=== PATIENT | female | born 1945 | race Caucasian/White ===

== ENCOUNTER → 2023-11-13 06:28 | Outpatient (REF) | payer MEDICARE, OTHER, SELFPAY ==
[2023-11-13 09:32] LABS: % Basophils 1.1 % (0-2); % Eosinophils 3.1 % (0-6); % Immature Granulocytes 0.4 % (0-0.5); % Lymphocytes 35.9 % (20.5-51.1); % Monocytes 7.9 % (1.7-9.3); % Neutrophils 51.6 % (42.2-75.2); Absolute Basophils 0.1 10^3/uL (0-0.2); Absolute Eosinophils 0.2 10^3/uL (0-0.7); Absolute Lymphocytes 1.9 10^3/uL (1.2-3.4); Absolute Monocytes 0.4 10^3/uL (0.1-0.6); Absolute Neutrophils 2.8 10^3/uL (1.4-6.5); Hematocrit 39.5 % (37.0-47.0); Hemoglobin 13.2 g/dL (12.0-16.0); Mean Corp Hgb Conc. 33.4 g/dL (33.0-37.0); Mean Corpuscular Volume 92.7 fL (81.0-99.0); Mean Platelet Volume 8.9 fL (7.4-10.4); Nucleated Red Blood Cells % 0 %; Platelet Count 253 10^3/uL (130-400); Red Blood Cell Count 4.26 10^6/uL (4.20-5.40); Red Cell Dist. Width 13.9 % (11.5-14.5); White Blood Cell Count 5.4 10^3/uL (4.8-10.8)
[2023-11-13 09:34] LABS: Urine Albumin Negative (Neg - Trace); Urine Bilirubin Negative (Negative); Urine Character Clear (Clear); Urine Color Yellow; Urine Glucose Negative (Negative); Urine Ketone Negative (Negative); Urine Leukocyte Negative (Negative); Urine Nitrite Negative (Negative); Urine Occult Blood Negative (Negative); Urine Urobilinogen Negative (Neg - 1+)
[2023-11-13 10:01] LABS: ALT (SGPT) 15 U/L (0-35); AST (SGOT) 25 U/L (14-36); Albumin 4.3 g/dl (3.5-5.0); Alkaline Phosphatase 63 U/L (38-126); Blood Urea Nitrogen 18 mg/dl (7-17); Calcium 9.2 mg/dl (8.4-10.2); Carbon Dioxide 27 mmol/L (22-30); Chloride 106 mmol/L (98-107); Glucose 101 mg/dl (70-99); Potassium 4.5 mmol/L (3.5-5.1); Sodium 139 mmol/L (135-145); Total Bilirubin 0.6 mg/dl (0.2-1.3); Total Cholesterol 231 mg/dl (50-199); Total Protein 6.7 g/dl (6.3-8.2); Triglyceride 101 mg/dl (10-149); Very Low Density Lipoprotein 20 mg/dl (0-30); eGFR > 60.00
[2023-11-13 10:12] LABS: HDL Cholesterol 117 mg/dl; LDL Cholesterol, Calculated 94 mg/dl
[2023-11-13 10:16] LABS: Vitamin D, 25-OH*** 63.1 ng/mL (30-80)
[2023-11-13 10:29] LABS: TSH Reflex To Free T4 3.75 uIU/ml (0.47-4.68)
[2023-11-13 12:37] LABS: Glycohemoglobin (HgbA1c) 5.7 % (4.0-5.6)
== END ==
LOC: HWLAB 06:28
PROVIDERS: ATTENDING PHYSICIAN Nurse Practitioner Adult Health
DX: E78.1 Pure hyperglyceridemia (principal); R73.02 Impaired glucose tolerance (oral); F41.9 Anxiety disorder, unspecified; R03.0 Elevated blood-pressure reading, without diagnosis of hypertension; E67.8 Other specified hyperalimentation
CPT/HCPCS: 36415; 80053; 80061; 81003; 82306; 83036; 84443; 85025

== ENCOUNTER → 2023-12-02 13:44 | Outpatient (REF) | payer MEDICARE, OTHER, SELFPAY | LOC: HWRAD 13:44 | PROVIDERS: ATTENDING PHYSICIAN Nurse Practitioner Adult Health | DX: Z12.31 Encounter for screening mammogram for malignant neoplasm of breast (principal); Z78.0 Asymptomatic menopausal state | CPT/HCPCS: 77063; 77067; 77080 ==

== ENCOUNTER 2024-07-05 22:56 | Emergency (ER) | payer MEDICARE, OTHER, SELFPAY ==
[2024-07-05 22:59] VITALS: BP 175/88
--- NOTE | 2024-07-06 01:39 | ED.GENMED ---
History of Present Illness
General
Chief Complaint: Numbness
Time Seen by Provider: 07/06/24 01:39
History of Present Illness
History of Present Illness:
TIME OF INITIAL ENCOUNTER: 1:45 AM
HPI: The presents due to rather severe pain coming from the right buttock region with paresthesias down the right lower extremity. She has had some milder cases of sciatica but this is the first time that she could barely walk due to the pain. She
did take 2 [id number] Advil prior to arrival. The symptoms started after she twisted awkwardly on the steps.
EXAM:
GENERAL: Well appearing but in moderate distress when she tries to move
HEENT: Moist oral mucosa
NEUROLOGIC: Excellent strength all extremities, no obvious coordination deficits, she has excellent strength in an L5 and S1 distribution bilaterally, there is no sensory deficits
BACK: There is decreased active range of motion the thoracolumbar spine due to pain, positive straight leg raise on the right
PSYCHIATRIC: Appropriate mental status, normal insight and judgement
EXTREMITIES: Nontender, no edema, moves all extremities equally
SKIN: Chronic appearing skin changes to the lower extremities
NUMBER AND COMPLEXITY OF PROBLEMS ADDRESSED AT THE ENCOUNTER
� Chronic conditions affecting care: Has had knee replacement
� Acute Exacerbation and/or Progression of Chronic Illness: This is an acute problem
� Differential Diagnosis includes: Sciatica, spinal stenosis, highly doubt fracture based on mechanism, meralgia paresthetica
AMOUNT AND/OR COMPLEXITY OF DATA TO BE REVIEWED AND ANALYZED
� I performed an independent evaluation of and my interpretation is:
EKG:
CT:
X-rays:
Laboratory Studies:
Other:
� Review of other/old records: The patient had COVID and was on Paxlovid in 2022
� Clinical information was obtained by an independent historian: I spoke to at bedside
� Prescriptions/Medications Considered but not given:
� Further testing considered but not performed: Considered MRI however the patient has no back pain red flags
RISK OF COMPLICATIONS AND/OR MORBIDITY OR MORTALITY OF PATIENT MANAGEMENT
� Social determinants of health affecting care: Lives at home
� Discussion with other providers:
� Escalation of care including admission/observation vs risk of discharge considered: The patient appears rather uncomfortable when she attempts to move and states she can barely walk. Therefore narcotic analgesia was given. We
also tried a shot of Toradol and steroids. Will reassess.
ANY OTHER UPDATES:
2:25 AM: I reassessed patient, she does feel improvement. She is to follow-up with PMD. Will start oral steroids and given narcotic prescription in case she needs it.
Phy Exam
Physical Exam
Physical Exam:
See HPI
Course
Orders/Labs/Results
Orders:
Orders
07/06/24 01:43
Ketorolac [Toradol] 30 mg IM NOW STA
Oxycodone/Acetaminophen [Percocet 5/325] 1 tablet PO NOW STA
Prednisone [Deltasone] 50 mg PO NOW STA
Vital Signs
Initial and Last Documented VS:
Initial Vital Signs
Temp Pulse Resp BP Pulse Ox
98.4 F 78 22 175/88 98
07/05/24 22:59 07/05/24 22:59 07/05/24 22:59 07/05/24 22:59 07/05/24 22:59
Last Documented Vital Signs
Temp Pulse Resp BP Pulse Ox
98.4 F 78 22 175/88 98
07/05/24 22:59 07/05/24 22:59 07/05/24 22:59 07/05/24 22:59 07/05/24 22:59
*Critical Care Note
Total Time (30-74mins, 75-104mins- exclusive of procedures): Not Applicable
ED Attending Note
-
Portions of this chart may have been created with voice recognition software.� Occasional wrong word or��sound alike� substitutions may have occurred due to the inherent limitations of voice recognition software.
Discharge Plan
Departure
Prescriptions:
No Action
Paxlovid 300 mg (150 mg x 2)-100 mg tablets,dose pack
See Rx Instructions .ROUTE .COMPLEX Qty: 30 0RF
Rx Instructions:
take TWO 150 mg tablets of nirmatrelvir with ONE 100 mg tablet of ritonavir twice daily for 5 days
Referrals:
Kasise Culp CRNP [Family Provider] -
Interventions
Interventions:
*Risk Screen - Suicide Last Done: 07/05/24 22:59
*General Assessment Last Done: 07/05/24 22:59
*Neglect/Abuse Screening Last Done: 07/05/24 22:59
*ED COVID-19 Vaccine History Last Done: 07/06/24 01:09
ED- Neurological Assessment Last Done: 07/06/24 01:44
Discharge Date and Time
Print Language: KOREAN
[2024-07-06] MEDS: PERCOCET 5/325 1 TABLET PO (01:56)
[2024-07-06] MEDS: TORADOL 30 MG IM (01:56)
[2024-07-06] MEDS: DELTASONE 50 MG PO (01:56)
[2024-07-06 02:36] VITALS: BP 176/97
== END 2024-07-06 02:43 | disposition home or self-care (01) ==
LOC: EMR 22:56
PROVIDERS: EMERGENCY PHYSICIAN Emergency Medicine; FAMILY PHYSICIAN Nurse Practitioner Adult Health
DX: M54.30 Sciatica, unspecified side (principal)
CPT/HCPCS: 99284; 96372; 96374

== ENCOUNTER → 2024-12-03 08:54 | Outpatient (REF) | payer MEDICARE, OTHER, SELFPAY ==
[2024-12-03 13:04] LABS: % Basophils 0.9 % (0-2); % Eosinophils 1.8 % (0-6); % Immature Granulocytes 0.4 % (0-0.5); % Lymphocytes 25.5 % (20.5-51.1); % Monocytes 7.1 % (1.7-9.3); % Neutrophils 64.3 % (42.2-75.2); Absolute Basophils 0.1 10^3/uL (0-0.2); Absolute Eosinophils 0.1 10^3/uL (0-0.7); Absolute Lymphocytes 1.4 10^3/uL (1.2-3.4); Absolute Monocytes 0.4 10^3/uL (0.1-0.6); Absolute Neutrophils 3.6 10^3/uL (1.4-6.5); Hematocrit 39.8 % (37.0-47.0); Hemoglobin 13.4 g/dL (12.0-16.0); Mean Corp Hgb Conc. 33.7 g/dL (33.0-37.0); Mean Corpuscular Hgb 30.7 pg (27.0-31.0); Mean Corpuscular Volume 91.3 fL (81.0-99.0); Nucleated Red Blood Cells % 0 %; Platelet Count 231 10^3/uL (130-400); Red Blood Cell Count 4.36 10^6/uL (4.20-5.40); Red Cell Dist. Width 13.9 % (11.5-14.5); White Blood Cell Count 5.6 10^3/uL (4.8-10.8)
[2024-12-03 13:20] LABS: Urine Albumin Negative (Neg - Trace); Urine Bilirubin Negative (Negative); Urine Character Clear (Clear); Urine Color Yellow; Urine Glucose Negative (Negative); Urine Ketone Negative (Negative); Urine Leukocyte Negative (Negative); Urine Nitrite Negative (Negative); Urine Occult Blood Negative (Negative); Urine Specific Gravity 1.005 (<1.030); Urine Urobilinogen Negative (Neg - 1+); Urine pH 6.5 (5.0-9.0)
[2024-12-03 13:30] LABS: Glycohemoglobin (HgbA1c) 5.5 % (4.0-5.6)
[2024-12-03 13:35] LABS: ALT (SGPT) 17 U/L (0-35); AST (SGOT) 26 U/L (14-36); Albumin 4.6 g/dl (3.5-5.0); Alkaline Phosphatase 55 U/L (38-126); Blood Urea Nitrogen 16 mg/dl (7-17); Calcium 9.7 mg/dl (8.4-10.2); Carbon Dioxide 27 mmol/L (22-30); Chloride 107 mmol/L (98-107); Glucose 104 mg/dl (70-99); Potassium 4.4 mmol/L (3.5-5.1); Sodium 140 mmol/L (135-145); Total Bilirubin 0.7 mg/dl (0.2-1.3); Total Cholesterol 193 mg/dl (50-199); Triglyceride 76 mg/dl (10-149); Very Low Density Lipoprotein 15 mg/dl (0-30); eGFR > 60.00
[2024-12-03 13:36] LABS: Vitamin D, 25-OH*** 64.6 ng/mL (30-80)
[2024-12-03 13:47] LABS: HDL Cholesterol 115 mg/dl; LDL Cholesterol, Calculated 63 mg/dl
[2024-12-03 14:26] LABS: Folate > 20.0 ng/ml (2.76-20); Vitamin B12 951 pg/ml (239-931)
== END ==
LOC: HWLAB 08:54
PROVIDERS: ATTENDING PHYSICIAN Nurse Practitioner Adult Health
DX: R73.02 Impaired glucose tolerance (oral) (principal); E78.1 Pure hyperglyceridemia; R53.83 Other fatigue; I35.8 Other nonrheumatic aortic valve disorders
CPT/HCPCS: 36415; 80053; 80061; 81003; 82306; 82607; 82728; 82746; 83036; 84443; 85025

== ENCOUNTER → 2024-12-08 09:56 | Outpatient (REF) | payer MEDICARE, OTHER, SELFPAY | LOC: HWWDC 09:56 | PROVIDERS: ATTENDING PHYSICIAN Nurse Practitioner Adult Health | DX: Z12.31 Encounter for screening mammogram for malignant neoplasm of breast (principal) | CPT/HCPCS: 77063; 77067 ==

== ENCOUNTER → 2025-02-01 12:47 | Outpatient (REF) | payer MEDICARE, OTHER, SELFPAY | LOC: RCS 12:47 | PROVIDERS: ATTENDING PHYSICIAN Internal Medicine Cardiovascular Disease; FAMILY PHYSICIAN Nurse Practitioner Adult Health | DX: R06.09 Other forms of dyspnea (principal) | CPT/HCPCS: 93017; 93350 ==

== ENCOUNTER → 2025-02-07 13:42 | Outpatient (REF) | payer MEDICARE, OTHER, SELFPAY | LOC: HWRCS 13:42 | PROVIDERS: ATTENDING PHYSICIAN Internal Medicine Cardiovascular Disease; FAMILY PHYSICIAN Nurse Practitioner Adult Health | DX: I35.8 Other nonrheumatic aortic valve disorders (principal); R06.09 Other forms of dyspnea | CPT/HCPCS: 93306 ==

== ENCOUNTER 2025-06-24 11:37 | Emergency (ER) | payer MEDICARE, OTHER, SELFPAY ==
[2025-06-24 11:38] VITALS: BP 172/86
[2025-06-24 11:52] VITALS: BP 116/93
[2025-06-24 12:00] VITALS: BP 135/78
[2025-06-24 12:03] VITALS: BMI 31.7
[2025-06-24 12:13] LABS: Hematocrit 38.3 % (37.0-47.0); Hemoglobin 13.3 g/dL (12.0-16.0); Mean Corp Hgb Conc. 34.7 g/dL (33.0-37.0); Mean Corpuscular Volume 90.5 fL (81.0-99.0); Nucleated Red Blood Cells % 0 %; Platelet Count 239 10^3/uL (130-400); Red Cell Dist. Width 13.9 % (11.5-14.5)
--- NOTE | 2025-06-24 12:18 | ED.GENMED ---
History of Present Illness
General
Chief Complaint: Cardiac Symptoms
Source: patient
Exam Limitations: none
Time Seen by Provider: 06/24/25 12:17
History of Present Illness
History of Present Illness:
80yoF with a history of hyperlipidemia presenting for evaluation of chest pain. Patient reports pain underneath her left breast/rib area for the past 2 days. Pain started after she lifted up her and believes she may have pulled a muscle.
Pain has been constant since it began but is worsening today. Pain is worse with deep breathing. She has tried Tylenol without any relief. She is otherwise asymptomatic and denies any fevers, nausea, vomiting, abdominal pain, shortness of breath,
leg swelling, calf pain. Patient had a 3-hour train ride last week. No tobacco use.
Phy Exam
General Physical Exam
General Presentation: well appearing and no apparent distress
General Skin: warm and dry
General Habitus: normal
General Mental: alert
ENT Exam
ENT Exam: normocephalic
Cardiovascular Exam
Cardiovascular Exam: regular rate/rhythm, no edema and no murmur
Pulmonary Exam
Pulmonary Exam: lungs clear, no respiratory distress, no rales, no crackles, no rhonchi, no wheezing and other (+Tenderness to L lower ribcage. No crepitus or skin changes.)
Neurological Exam
Neurological Exam: alert
[place] Coma Scale
Eye Opening: Spontaneous
Verbal Response: Oriented
Motor Response: Obeys Commands
GCS Total Score: 15
Skin Exam
Skin Exam: normal color and warm/dry
Psychiatric Exam
Psychiatric Exam: normal mood/affect
Course
Orders/Labs/Results
Orders:
Orders
06/24/25 11:37
ECG [Electrocardiogram (*1)] Urgent
Reason for Study: Chest Pain
06/24/25 11:38
EKG- Treatment ONCE
06/24/25 12:06
Complete Blood Count/With Diff Urgent
Comprehensive Metabolic Panel Urgent
Troponin I Urgent
06/24/25 12:28
Cardiac Monitoring- Treatment ONCE
06/24/25 12:29
D-Dimer Urgent
06/24/25 13:08
CT Chest PE Study Urgent
Comment:
Reason For Exam: Pleuritic L sided chest pain, elevated D-dimer
Abnormal Lab Results
06/24/25 06/24/25
12:06 12:29
MCH 31.4 H pg
(27.0-31.0)
D-Dimer 0.51 H ug/mlFEU
(0.00-0.50)
BUN 18 H mg/dl
(7-17)
Glucose 116 H mg/dl
(70-99)
06/24/25 12:06
06/24/25 12:06
Vital Signs
Initial and Last Documented VS:
Initial Vital Signs
Temp Pulse Resp BP Pulse Ox
98.5 F 85 20 172/86 98
06/24/25 11:38 06/24/25 11:38 06/24/25 11:38 06/24/25 11:38 06/24/25 11:38
Last Documented Vital Signs
Temp Pulse Resp BP Pulse Ox
98.5 F 73 19 131/64 97
06/24/25 11:38 06/24/25 13:30 06/24/25 13:30 06/24/25 13:00 06/24/25 13:30
MDM/Problems Addressed
Differential Diagnosis Includes:
80yoF here with pain underneath L breast/rib x 2 days. Worse with deep breathing. She is hypertensive in triage with otherwise stable vitals. She is well appearing in no distress. There is reproducible chest wall tenderness on exam. Differential
diagnosis includes but is not limited to: costochondritis/musculoskeletal, pleurisy, PE, pneumonia, less likely ACS
Initial ED plan: Triage EKG shows NSR without ischemic changes. Will check cardiac labs, D-dimer, and CXR vs. CT depending on D-dimer results.
*Pulse Oximetry
SaO2: 98
Oxygen Mode of Delivery: Room air
Patient hypoxic: no
*EKG
Interpreted by ED Provider?: Yes
EKG Intrepretation Date: 06/24/25
Heart Rate: 87
Rate: normal
Rhythm: sinus
[place]: normal axis
Interval: normal interval
QRS Pattern: right bundle branch block (incomplete)
Ischemia: no ischemia
*Critical Care Note
Total Time (30-74mins, 75-104mins- exclusive of procedures): Not Applicable
Update Note
Update Note:
Troponin undetectable. D-dimer elevated and CTA chest subsequently ordered. CT is negative for pulmonary embolism or other acute findings. Lung nodules seen incidentally. Patient informed of this finding and copy of radiology report given to
patient. Suspect musculoskeletal pain. No indication for hospitalization. Supportive care discussed and advised f/u with PCP. ED return precautions reviewed and patient discharged in stable condition.
ED Attending Note
-
Portions of this chart may have been created with voice recognition software.� Occasional wrong word or��sound alike� substitutions may have occurred due to the inherent limitations of voice recognition software.
Discharge Plan
Departure
Patient Disposition: Home (Routine Discharge)
Date of Disposition: 06/24/25
Time of Disposition: 14:36
Patient with high blood pressure during this ER visit?: No
Discharge Problem:
Chest wall pain, Multiple nodules of lung
Instructions: Costochondritis
Prescriptions:
No Action
Paxlovid 300 mg (150 mg x 2)-100 mg tablets,dose pack
See Rx Instructions .ROUTE .COMPLEX Qty: 30 0RF
Rx Instructions:
take TWO 150 mg tablets of nirmatrelvir with ONE 100 mg tablet of ritonavir twice daily for 5 days
prednisone 50 mg tablet
50 mg PO DAILY Qty: 4 0RF
oxycodone-acetaminophen [Percocet] 5-325 mg tablet
1 tab PO Q6HPRN PRN (Reason: pain) Qty: 14 0RF
Referrals:
Kassie Culp CRNP [Family Provider, General]
Activity Restrictions/Additional Instructions:
Apply heat to affected area. Take ibuprofen as needed for pain.
Please follow-up with your family doctor next week. Multiple lung nodules were seen on today's CT scan and radiology recommends repeat CT scan in 6-12 months.
Return to the ER with any new or worsening symptoms.
Interventions
Interventions:
*Risk Screen - Suicide Last Done: 06/24/25 12:24
*General Assessment Last Done: 06/24/25 11:38
*Neglect/Abuse Screening Last Done: 06/24/25 12:24
*ED- Fall Risk Assessment Last Done: 06/24/25 12:24
*ED COVID-19 Vaccine History Last Done: 06/24/25 12:24
*ED Influenza Vaccine History Last Done: 06/24/25 12:24
*Nursing Disposition Last Done: 06/24/25 14:58
ED- Pulmonary Assessment Last Done: 06/24/25 12:24
ED- Cardiac Assessment Last Done: 06/24/25 12:24
Discharge Date and Time
Discharge Date/Time: 06/24/25 14:59
Print Language: [email or web address]
[2025-06-24 12:38] LABS: Troponin I < 0.012 ng/ml
[2025-06-24 12:39] LABS: ALT (SGPT) 18 U/L (0-35); AST (SGOT) 23 U/L (14-36); Albumin 4.7 g/dl (3.5-5.0); Alkaline Phosphatase 49 U/L (38-126); Blood Urea Nitrogen 18 mg/dl (7-17); Calcium 9.7 mg/dl (8.4-10.2); Carbon Dioxide 26 mmol/L (22-30); Chloride 107 mmol/L (98-107); Estimated Creatinine Clearance 69 ml/min; Glucose 116 mg/dl (70-99); Potassium 4.1 mmol/L (3.5-5.1); Sodium 140 mmol/L (135-145); Total Protein 7.0 g/dl (6.3-8.2); eGFR > 60.00
[2025-06-24 12:59] LABS: D-Dimer 0.51 ug/mlFEU (0.00-0.50)
[2025-06-24 13:00] VITALS: BP 131/64
== END 2025-06-24 14:59 | disposition home or self-care (01) ==
LOC: EMR 11:37
PROVIDERS: Physician Assistant; EMERGENCY PHYSICIAN Emergency Medicine; FAMILY PHYSICIAN Nurse Practitioner Adult Health
DX: R07.89 Other chest pain (principal); X50.0XXA Overexertion from strenuous movement or load, initial encounter; R91.8 Other nonspecific abnormal finding of lung field; E78.00 Pure hypercholesterolemia, unspecified
CPT/HCPCS: 99284; 71275; 80053; 84484; 85025; 85379; 93005; Q9967